=== PATIENT | female | born 1985 ===

== ENCOUNTER 2021-05-21 16:13 | Inpatient (IN) | payer OTHER ==
[~2021-05-21] VITALS: Ht 154.9 cm; Wt 72.6 kg
[2021-05-21] MEDS ORDERED: ASPirin 81 mg TAB PO ONE (17:00)
[2021-05-21 17:24] LABS: Basophils # (auto) 0 10 ^3/uL (0-0.2); Basophils % (auto) 0.2 % (0.0-2.0); Eosinophils # (auto) 0 10 ^3/uL (0-0.8)
[2021-05-21 17:25] LABS: Hemoglobin 10.2 g/dL (12.2-16.2); Lymphocytes # (auto) 0.9 10 ^3/uL (0.4-5.4); Lymphocytes % (auto) 10.8 % (10.0-50.0); Mean Corpuscular Hemoglobin 19.6 pg (28.0-32.0); Mean Corpuscular Volume 65.4 fL (80.0-100.0); Monocytes # (auto) 0.4 10 ^3/uL (0-1.3); Monocytes % (auto) 4.2 % (0.0-12.0); Neutrophils # (auto) 7.1 10 ^3/uL (1.6-8.6); Neutrophils % (auto) 84.8 % (37.0-80.0); Red Cell Distribution Width 19.2 % (11.8-14.3); White Blood Cell 8.4 10^3/uL (4.4-10.8)
[2021-05-21 17:37] LABS: Blood Urea Nitrogen 8 mg/dL (7-18); Calcium 8.3 mg/dL (8.5-10.1); Chloride 106 mmol/L (98-107); Potassium 3.3 mmol/L (3.5-5.1); Sodium 140 mmol/L (136-145)
[2021-05-21 17:41] LABS: Alanine Aminotransferase 18 U/L (13-56); Anion Gap 9 (5-15); Aspartate Aminotransferase 13 U/L (15-37); BUN/Creatinine Ratio 9.6; Carbon Dioxide 25 mmol/L (21-32); GFR African American 99 mL/min; GFR Non-African American 82 mL/min; Glucose 81 mg/dL (74-106)
[2021-05-21 17:45] LABS: Alkaline Phosphatase 81 U/L (45-117); Bilirubin, Total 0.2 mg/dL (0.2-1.0); Total Protein 7.6 g/dL (6.4-8.2)
[2021-05-22] MEDS ORDERED: LORazepam 2MG/ML-1ML VIAL IV PRN ×2 (06:00→09:00)
[2021-05-22] MEDS ORDERED: ACETAMINOPHEN 325 MG TAB PO PRN (06:00)
[2021-05-22] MEDS ORDERED: TEMAZEPAM 15 MG CAP PO PRN (06:00)
[2021-05-22] MEDS ORDERED: ONDANSETRON HCL 4 MG/2 ML VIAL IV PRN (06:00)
[2021-05-22 07:02] LABS: Urine Bacteria MOD /hpf (None Seen); Urine Blood Negative /uL (Negative); Urine Hyaline Cast FEW /lpf (0 - 2); Urine Mucus FEW (None Seen); Urine Specific Gravity 1.021 (1.001-1.035); Urine WBC 160 /hpf (0 - 5)
[2021-05-22 07:03] LABS: Alcohol, Urine < 3.0 mg/dL (0-10); Amphetamine Screen, Urine NEGATIVE (NEGATIVE); Barbiturate Scree,Urine NEGATIVE (NEGATIVE); Benzodiazephine Screen, Urine NEGATIVE (NEGATIVE); Cannabinoid Screen, Urine NEGATIVE (NEGATIVE); Cocaine Screen, Urine NEGATIVE (NEGATIVE); Opiate Scree,Urine NEGATIVE (NEGATIVE); Phencyclidine Screen, Urine NEGATIVE (NEGATIVE)
[2021-05-22 07:30] LABS: Calcium 8.3 mg/dL (8.5-10.1); Potassium 3.6 mmol/L (3.5-5.1)
[2021-05-22 07:33] LABS: BUN/Creatinine Ratio 11.2
[2021-05-22 08:26] VITALS: BP 122/77
[2021-05-22 09:13] LABS: Cholesterol 167 mg/dL (< 200)
[2021-05-22 09:16] LABS: HDL Cholesterol 53 mg/dL (40-59); LDL Cholesterol 102 mg/dL (< 100); Triglycerides 66 mg/dL (< 150)
[2021-05-22] MEDS ORDERED: PANTOPRAZOLE 40 MG TAB PO SCH (10:00)
[2021-05-22] MEDS ORDERED: ASPirin 81 mg TAB PO SCH (10:00)
[2021-05-22] MEDS ORDERED: ASPirin-EC 81 mg tab PO SCH (10:00)
[2021-05-22] MEDS ORDERED: FLUO60TA7 PO (11:04)
[2021-05-22] MEDS ORDERED: LORazepam 0.5 MG TAB PO PRN (12:45)
[2021-05-22] MEDS ORDERED: KETOROLAC TROMETH 30 MG/ML 1ML VIAL IV PRN (12:45)
[2021-05-22 13:00] VITALS: BP 111/73
[2021-05-22 17:00] VITALS: BP 117/74
[2021-05-22] MEDS: HYDROcodone-ACET 5/325MG TAB PO PRN (17:17)
[2021-05-22 22:00] VITALS: BP 130/84
[2021-05-22] MEDS ORDERED: ATORVASTATIN 20 MG TAB PO SCH ×2 (22:00)
[2021-05-23 05:00] VITALS: BP 108/57
[2021-05-23 06:19] LABS: Basophils # (auto) 0 10 ^3/uL (0-0.2); Basophils % (auto) 0.3 % (0.0-2.0); Eosinophils # (auto) 0 10 ^3/uL (0-0.8); Lymphocytes # (auto) 1.2 10 ^3/uL (0.4-5.4); White Blood Cell 5.8 10^3/uL (4.4-10.8)
[2021-05-23 06:21] LABS: Hematocrit 30.8 % (36.0-46.0); Hemoglobin 9.3 g/dL (12.2-16.2); Lymphocytes % (auto) 20.5 % (10.0-50.0); Mean Corpuscular Hgb Conc. 30.3 g/dL (32.0-36.0); Mean Corpuscular Volume 66.1 fL (80.0-100.0); Monocytes # (auto) 0.5 10 ^3/uL (0-1.3); Monocytes % (auto) 9.2 % (0.0-12.0); Red Blood Cells 4.66 10^6/uL (4.0-5.20); Red Cell Distribution Width 19.1 % (11.8-14.3)
[2021-05-23 06:29] LABS: Calcium 8.6 mg/dL (8.5-10.1); Potassium 3.7 mmol/L (3.5-5.1)
[2021-05-23 06:31] LABS: BUN/Creatinine Ratio 18.3
[2021-05-23 08:00] VITALS: BP 113/67
[2021-05-23] MEDS: HYDROcodone-ACET 5/325MG TAB PO PRN (08:10)
[2021-05-23 09:00] VITALS: BP 120/75
[2021-05-23 14:03] VITALS: BP 115/75
== END 2021-05-23 14:30 | disposition home or self-care (01) | DRG 53 ==
LOC: ER 16:13 → OVERFLOW 05-22 05:58 → WEST WING 05-22 08:41
PROVIDERS: ADMIT Nurse Practitioner; ATTEND Internal Medicine
DX: G40.409 Other generalized epilepsy and epileptic syndromes, not intractable, without status epilepticus (principal); G45.9 Transient cerebral ischemic attack, unspecified; F32.A Depression, unspecified; E66.9 Obesity, unspecified; F41.9 Anxiety disorder, unspecified; Z20.822 Contact with and (suspected) exposure to COVID-19; M79.7 Fibromyalgia; Z79.82 Long term (current) use of aspirin; Z68.30 Body mass index [BMI] 30.0-30.9, adult; Z79.899 Other long term (current) drug therapy; Z82.49 Family history of ischemic heart disease and other diseases of the circulatory system; Z83.3 Family history of diabetes mellitus
CPT/HCPCS: 36415; 70450; 70551; 71045; 72040; 80048; 80053; 80061; 80307; 81001; 84484; 84702; 85025; 87426; 93306; 93886; 95819; G0378; J1885